=== PATIENT | female | born 1965 | race African-American/Black ===

== ENCOUNTER 2020-03-16 20:11 | Emergency (ER) | payer SELFPAY ==
[2020-03-16 20:27] VITALS: BP 151/89; PULSE 83; TEMP 98.1; BMI 25.8
--- NOTE | 2020-03-16 20:42 | PDOC ---
Documentation entered by Elias Quiroga SCRIBE, acting as scribe for Brianda Mathew MD. Brianda Mathew MD: This documentation has been prepared by the Alex turpin Angel, SCRIBE, under my direction and personally reviewed by me in its entirety. I confirm that the documentation accurately reflects all work, treatment, procedures, and medical decision making performed by me. Attending Attestation - Resident Resident Name: KeithHimanshuAravind - ED Attending Attestation I have performed the following: I have examined & evaluated the patient, The case was reviewed & discussed with the resident, I agree w/resident's findings & plan, Exceptions are as noted - HPI HPI: 03/16/20 20:42 This 55 yo female p/w low back pain after lifting a window tonight. The pain is positional . 03/16/20 21:05 - Physicial Exam PE: 03/16/20 21:06 55 yo female p/w low back pain head ncat neck supple lungs cta b/l cvs [id number] abdomen nontender no midline vertebral tenderness skin warm and dry extremities no deformities , no numbness, no foot drop neuro axox3,motor strength 5/5 b/l, no facial droop 03/16/20 23:12 03/16/20 23:33 - Medical Decision Making 03/16/20 23:33 no focal neuro deficits Discharge - Discharge Information Problems reviewed: Yes Clinical Impression/Diagnosis: UTI (urinary tract infection), Back pain Condition: Fair Disposition: HOME - Additional Discharge Information Prescriptions: Cephalexin [Keflex] 500 mg PO BID 7 Days #14 capsule - Follow up/Referral Referrals: Wayne Hollins MD [Primary Care Provider] - - Patient Discharge Instructions Patient Printed Discharge Instructions: Low Back Pain (Alternative Therapy), DI for Urinary Tract Infection (UTI) Additional Instructions: You are here for back pain . We did urine analysis because you complained of symptoms. We evaluated your back. We didn't think you need imaging due to the history and mechanism. We gave you pain control. We prescribed antibiotic for your UTI . It should be in your preferred pharmacy. Take it for 7 days, twice a day. Please follow up with the PCP within 1 week. Please come back if you feel numbness on the extremities, incontinence, or worsening pain. - Post Discharge Activity
--- OUTSIDE RECORDS SUMMARY | 2020-03-16 20:45 | XMS ---
:1965 [facility] Support Name Relationship Address Phone UE Unavailable Unavailable Unavailable SHRUTI KING BROTHER [address] [place] [address] Re-disclosure Warning The records that you are about to access may contain information from federally- assisted alcohol or drug abuse programs. If such information is present, then the following federally mandated warning applies: This information has been disclosed to you from records protected by federal confidentiality rules (42 CFR part 2). The federal rules prohibit you from making any further disclosure of this information unless further disclosure is expressly permitted by the written consent of the person to whom it pertains or as otherwise permitted by 42 CFR part 2. A general authorization for the release of medical or other information is NOT sufficient for this purpose. The Federal rules restrict any use of the information to criminally investigate or prosecute any alcohol or drug abuse patient.The records that you are about to access may contain highly sensitive health information, the redisclosure of which is protected by Article 27-F of the [facility] Public Health law. If you continue you may haveaccess to information: Regarding HIV / AIDS; Provided by facilities licensed or operated by the [facility] Office of Mental Health; or Provided by the [facility] Office for People With Developmental Disabilities. If such information is present, then the following [facility] mandated warning applies: This information has been disclosed to you from confidential records which are protected by state law. State law prohibits you from making any further disclosure of this information without the specific written consent of the person to whom it pertains, or as otherwise permitted by law. Any unauthorized further disclosure in violation of state law may result in a fine or usp sentence or both. A general authorization for the release of medical or other information is NOT sufficient authorization for further disclosure. Insurance Providers Payer name Policy type Policy ID Covered Covered republican's Policy P carlos / Coverage republican ID relationship to [employer] ormation type watt SELF PAY SP INSURANCE
--- NOTE | 2020-03-16 20:58 | PDOC ---
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 Patient was perfectly fine then moved over the window to open the window. She felt the acute sharp pain that debilitate her movement. She denies trauma, falling, saddle anesthesia, incontinence. She had diarrhea two days ago, admitted to have increased frequency, and discharge. Denies nausea, vomiting, ataxia. 03/16/20 22:24 PMHX: as in HPI PSHX: none Meds: psy meds. naproxen. Allergies: none Tob: none Etoh: none Rec drugs: none PCP:Gurvinder BURNETTE GENERAL/CONSTITUTIONAL: No fever or chills. No weakness. HEAD, EYES, EARS, NOSE AND THROAT: No change in vision. No ear pain or discharge. No sore throat. CARDIOVASCULAR: No chest pain or shortness of breath RESPIRATORY: No cough, wheezing, or hemoptysis. GASTROINTESTINAL: No nausea, vomiting, diarrhea or constipation. GENITOURINARY: No dysuria, frequency, or change in urination. MUSCULOSKELETAL: knees pain. + back pain. SKIN: No rash NEUROLOGIC: No headache, vertigo, loss of consciousness, or change in strength/sensation. ENDOCRINE: No increased thirst. No abnormal weight change HEMATOLOGIC/LYMPHATIC: No anemia, easy bleeding, or history of blood clots. ALLERGIC/IMMUNOLOGIC: No hives or skin allergy. PE GENERAL: Awake, alert, and fully oriented, in no acute distress HEAD: No signs of trauma, normocephalic, atraumatic EYES: PERRLA, EOMI, sclera anicteric, conjunctiva clear ENT: Auricles normal inspection, hearing grossly normal, nares patent, oropharynx clear without exudates. Moist mucosa NECK: Normal ROM, supple, no lymphadenopathy, JVD, or masses LUNGS: No distress, speaks full sentences, clear to auscultation bilaterally HEART: Regular rate and rhythm, normal S1 and S2, no murmurs, rubs or gallops, peripheral pulses normal and equal bilaterally. ABDOMEN: Soft, nontender, normoactive bowel sounds. No guarding, no rebound. No masses EXTREMITIES : Normal inspection, Normal range of motion, no edema. No tenderness upon pressing pelvic, knees, legs. No midline tenderness of the neck, spine, lumbar. NEUROLOGICAL: Cranial nerves II through XII grossly intact. Normal speech, normal gait, no focal sensorimotor deficits . Neg straight leg raise bilat. SKIN: Warm, Dry, normal turgor, no rashes or lesions noted 03/16/20 23:12 Past History - Medical History Allergies/Adverse Reactions: Allergies Allergy/AdvReac Type Severity Reaction Status Date / Time No Known Allergies Allergy Verified 03/16/20 20:27 Home Medications: Ambulatory Orders Cephalexin [Keflex] 500 mg PO BID 7 Days #14 capsule 03/16/20 - Psycho-Social/Smoking History Smoking History: Never smoked Have you smoked in the past 12 months: No Information on smoking cessation initiated: No - Substance Abuse Hx (Audit-C & DAST Scrn) How often the patient has a drink containing alcohol: Never Score: In Men: 4 or > Positive; In Women: 3 or > Positive: 0 Screen Result (Pos requires Nsg. Audit-10AR): Negative In the last yr the pt used illegal drug/Rx for NonMed reason: No Score: Yes response is considered Positive: 0 Screen Result (Positive result requires Nsg. DAST-10): Negative *Physical Exam - Vital Signs Last Vital Signs Temp Pulse Resp BP Pulse Ox 98.1 F 83 18 151/89 97 03/16/20 20:15 03/16/20 20:15 03/16/20 20:15 03/16/20 20:15 03/16/20 20:15 Medical Decision Making - Medical Decision Making 03/16/20 22:28 Most likely MSK. Denies saddle anesthesia, incontinent, trauma, falling. Pain control with [place] shot Stable to d/c , f/u with PCP. 03/16/20 23:12 UA showed increased Bacteria. Will treat for UTI Prescription is sent. Precaution instruction is told. Stable to discharge. 03/16/20 23:52 Discharge - Discharge Information Problems reviewed: Yes Clinical Impression/Diagnosis: UTI (urinary tract infection), Back pain Condition: Fair Disposition: HOME - Additional Discharge Information Prescriptions: Cephalexin [Keflex] 500 mg PO BID 7 Days #14 capsule - Follow up/Referral Referrals: Wayne Hollins MD [Primary Care Provider] - - Patient Discharge Instructions Patient Printed Discharge Instructions: Low Back Pain (Alternative Therapy), DI for Urinary Tract Infection (UTI) Additional Instructions: You are here for back pain . We did urine analysis because you complained of symptoms. We evaluated your back. We didn't think you need imaging due to the history and mechanism. We gave you pain control. We prescribed antibiotic for your UTI . It should be in your preferred pharmacy. Take it for 7 days, twice a day. Please follow up with the PCP within 1 week. Please come back if you feel numbness on the extremities, incontinence, or worsening pain. - Post Discharge Activity
[2020-03-16] MEDS ORDERED: KETOROLAC TROMETHAMINE 30 MG/1 ML VIAL IM ONE (21:06)
[2020-03-16] MEDS ORDERED: KETOROLAC TROMETHAMINE 30 MG/1 ML VIAL ONE (21:28)
[2020-03-16 22:28] LABS: EPI CELLS 22 /uL (0-25.1); HYALINE CASTS 2 /uL (0-3.1); URINE APPEARANCE CLEAR; URINE BACTERIA 278 /uL (0-1359); URINE BILIRUBIN NEGATIVE (NEGATIVE); URINE COLOR YELLOW; URINE GLUCOSE (UA) NEGATIVE (NEGATIVE); URINE KETONE NEGATIVE (NEGATIVE); URINE LEUK ESTERASE NEGATIVE (NEGATIVE); URINE NITRITE NEGATIVE (NEGATIVE); URINE PROTEIN TRACE (NEGATIVE); URINE RBC 37 /uL (0-23.9); URINE WBC 14 /uL (0-25.8)
== END 2020-03-17 | disposition home or self-care (01) ==
LOC: JER 20:11
PROC: 3E0233Z Introduction of Anti-inflammatory into Muscle, Percutaneous Approach (ICD-10-PCS; principal; 2020-03-16)
DX: N39.0 Urinary tract infection, site not specified (principal); M54.5 Low back pain
CPT/HCPCS: 81003; 87086; 99284-25